=== PATIENT | female | born 1985 | race Caucasian/White ===

== ENCOUNTER 2017-12-31 16:28 | Emergency (ER) | payer MEDICAID ==
--- NOTE | 2017-12-31 16:51 | EDPHY ---
H & P Time Seen by Provider: 12/31/17 16:50 HPI/ROS: Chief complaint. Headache, body aches HPI. 32-year-old female presents emergency department with 1 week history of gradually increasing weakness. Last week she had lower abdominal pain of this is resolved. Today she felt like she could pass out because of weakness. She is somewhat sore in her chest. However no cough or significant shortness of breath. No fever but hot and cold flashes. Some congestion without sore throat. Nausea without vomiting or diarrhea. Denies urinary symptoms. No rash. No recent travel or known infectious exposure. ROS Constitutional. Weakness Eyes. no problems with vision ENT. Congestion Cardiovascular. Sore in chest Respiratory. Weak lungs Abdominal. Nausea . no problems urinating MS. no calf pain/swelling, no neck/back pain, no joint pain Skin. no rash Lymph. no swollen glands Neuro. Headache Past Medical/Surgical History: Healthy Social History: , daily smoker, no alcohol Smoking Status: Current some day smoker Physical Exam: General Appearance: Alert well-developed female mild distress vital signs are stable Eyes: Pupils equal and round no pallor or injection. ENT, tympanic membranes are normal. Pharynx slightly injected without exudate. Respiratory: There are no retractions, lungs are clear to auscultation. Cardiovascular: Regular rate and rhythm. Gastrointestinal: Abdomen is soft and nontender, no masses, bowel sounds normal. Neurological: Awake and alert, sensory and motor exams grossly normal. Skin: Warm and dry, no rashes. Musculoskeletal: Neck is supple nontender. Extremities symmetrical, full range of motion. Psychiatric: Patient is oriented X 3, there is no agitation. Constitutional: Initial Vital Signs Temperature (C) 37.0 C 12/31/17 16:44 Heart Rate 85 12/31/17 16:44 Respiratory Rate 18 12/31/17 16:44 Blood Pressure 112/75 12/31/17 16:44 O2 Sat (%) 96 12/31/17 16:44 O2 Delivery Mode Room Air Allergies/Adverse Reactions: No Known Allergies Allergy (Unverified 12/31/17 16:43) Home Medications: Medication Instructions Recorded NK [No Known Home Meds] 12/31/17 Medical Decision Making - Diagnostics Imaging Results: Imaging Impressions Chest X-Ray 12/31/17 17:09 Impression: Normal. Procedures: IV normal saline and patient is given 1 L of saline ED Course/Re-evaluation: Re-evaluation at 6:15 p.m.. Patient is stable. She and I discussed imaging and lab results. We discussed treatment plan including criteria for return importance of follow-up further evaluation. She expresses understanding and agreement Patient looks well. She does not appear toxic or septic Differential Diagnosis: I think this likely viral syndrome. I considered influenza, pneumonia, urinary tract infection. While she has an elevated white blood cell count there is no obvious source of bacterial infection. - Data Points Laboratory Results: Laboratory Results 12/31/17 17:20 12/31/17 17:20 12/31/17 12/31/17 12/31/17 17:35 17:20 17:20 WBC RBC Hgb Hct MCV MCH MCHC RDW Plt Count MPV Neut % (Auto) Lymph % (Auto) [place] % (Auto) Eos % (Auto) Baso % (Auto) Nucleat RBC Rel Count Absolute Neuts (auto) Absolute Lymphs (auto) Absolute Monos (auto) Absolute Eos (auto) Absolute Basos (auto) Absolute Nucleated RBC Immature Gran % Immature Gran # Sodium Potassium Chloride Carbon Dioxide Anion Gap BUN Creatinine Estimated GFR Glucose Calcium Beta HCG, Qual NEGATIVE Urine Color YELLOW Urine Appearance HAZY Urine pH 7.0 (5.0-7.5) Ur Specific [place] 1.015 (1.002-1.030) Urine Protein NEGATIVE (NEGATIVE) Urine Ketones NEGATIVE (NEGATIVE) Urine Blood NEGATIVE (NEGATIVE) Urine Nitrate NEGATIVE (NEGATIVE) Urine Bilirubin NEGATIVE (NEGATIVE) Urine Urobilinogen 0.2 EU EU (0.2-1.0) Ur Leukocyte Esterase NEGATIVE (NEGATIVE) Urine RBC NONE SEEN /hpf /hpf (0-3) Urine WBC NONE SEEN /hpf /hpf (0-3) Ur Epithelial Cells 2+ /lpf H /lpf (NONE-1+) Urine Bacteria TRACE /hpf H /hpf (NONE SEEN) Urine Mucus 1+ /lpf /lpf (NONE-1+) Urine Glucose NEGATIVE (NEGATIVE) Influenza A,B Rapid NEGATIVE FOR FLU (NEGATIVE) 12/31/17 12/31/17 17:20 17:20 WBC 15.16 10^3/uL H 10^3/uL (3.80-9.50) RBC 4.67 10^6/uL 10^6/uL (4.18-5.33) Hgb 13.1 g/dL g/dL (12.6-16.3) Hct 39.9 % % (38.0-47.0) MCV 85.4 fL fL (81.5-99.8) MCH 28.1 pg pg (27.9-34.1) MCHC 32.8 g/dL g/dL (32.4-36.7) RDW 14.5 % % (11.5-15.2) Plt Count 382 10^3/uL 10^3/uL (150-400) MPV 10.0 fL fL (8.7-11.7) Neut % (Auto) 77.7 % H % (39.3-74.2) Lymph % (Auto) 15.0 % % (15.0-45.0) [place] % (Auto) 5.0 % % (4.5-13.0) Eos % (Auto) 1.3 % % (0.6-7.6) Baso % (Auto) 0.7 % % (0.3-1.7) Nucleat RBC Rel Count 0.0 % % (0.0-0.2) Absolute Neuts (auto) 11.76 10^3/uL H 10^3/uL (1.70-6.50) Absolute Lymphs (auto) 2.28 10^3/uL 10^3/uL (1.00-3.00) Absolute Monos (auto) 0.76 10^3/uL 10^3/uL (0.30-0.80) Absolute Eos (auto) 0.20 10^3/uL 10^3/uL (0.03-0.40) Absolute Basos (auto) 0.11 10^3/uL H 10^3/uL (0.02-0.10) Absolute Nucleated RBC 0.00 10^3/uL 10^3/uL (0-0.01) Immature Gran % 0.3 % % (0.0-1.1) Immature Gran # 0.05 10^3/uL 10^3/uL (0.00-0.10) Sodium 142 mEq/L mEq/L (135-145) Potassium 3.8 mEq/L mEq/L (3.5-5.2) Chloride 105 mEq/L mEq/L (97-110) Carbon Dioxide 25 mEq/l mEq/l (22-31) Anion Gap 12 mEq/L mEq/L (8-16) BUN 7 mg/dL mg/dL (7-23) Creatinine 0.6 mg/dL mg/dL (0.6-1.0) Estimated GFR > 60 Glucose 109 mg/dL H mg/dL (70-100) Calcium 9.0 mg/dL mg/dL (8.5-10.4) Beta HCG, Qual Urine Color Urine Appearance Urine pH Ur Specific [place] Urine Protein Urine Ketones Urine Blood Urine Nitrate Urine Bilirubin Urine Urobilinogen Ur Leukocyte Esterase Urine RBC Urine WBC Ur Epithelial Cells Urine Bacteria Urine Mucus Urine Glucose Influenza A,B Rapid Medications Given: Discontinued Medications Sodium Chloride (Ns) 1,000 mls @ 0 mls/hr IV EDNOW ONE; Wide Open PRN Reason: Protocol Stop: 12/31/17 17:10 Last Admin: 12/31/17 17:18 Dose: 1,000 mls Departure - Departure Disposition: Home, Routine, Self-Care Clinical Impression: Viral syndrome Condition: Good Instructions: Viral Syndrome (ED) Additional Instructions: Easy activity. Drink plenty of fluids and stay hydrated. Tylenol 1000 mg every 4-6 hours, ibuprofen 600 mg every 6 hr as needed for fever and achiness. Return for worsening symptoms. Recheck in 2 days if not improved Referrals: NONE *PRIMARY CARE P,. [Primary Care Provider] - As per Instructions [facility] [Outside] - 2-3 days, if not improved Stand Alone Forms: School Excuse
[2017-12-31] MEDS ORDERED: NS 1,000 ML IV ONE (17:09)
[2017-12-31 17:24] LABS: PLATELET COUNT 382 10^3/uL (150-400)
[2017-12-31 18:41] VITALS: BP 100/59; PULSE 77; RESP 17; TEMP 98.8; O2SAT 99
== END 2017-12-31 18:39 | disposition home or self-care (01) ==
LOC: CED 16:28
DX: B34.9 Viral infection, unspecified (principal); E86.9 Volume depletion, unspecified; F17.200 Nicotine dependence, unspecified, uncomplicated
CPT/HCPCS: 71045-PO; 80048-PO; 81003-PO; 81015-PO; 84703-PO; 85025-PO; 87400-PO

== ENCOUNTER 2018-01-09 14:44 | Emergency (ER) | payer MEDICAID ==
[2018-01-09 14:54] VITALS: RESP 16
--- NOTE | 2018-01-09 15:34 | EDPHY ---
H & P Stated Complaint: PT. states lightheaded,fatigue, dizziness and nausea x1 week Time Seen by Provider: 01/09/18 15:02 HPI/ROS: This patient presents with ongoing symptoms of fatigue ache. She was seen here on December 31, 9 days prior to this visit by Dr. Black with complaints of fatigue, chills without fevers, nausea and had leukocytosis [place] [id number] [place] that time. She had an normal chest x-ray and Dr. Black felt she likely had a viral syndrome causing her symptoms. She has been hydrating with plenty fluids at home and is also seen documentation writer few times now but still has not felt any improvement. She returned today due to the ongoing symptoms. In addition to the above symptoms she reports feeling she has a"brain fog". She also describes mild dyspnea on exertion. ROS: Constitutional: Chills and also intolerant of cold temperatures but no fevers. Positive fatigue. HEENT: She denies any URI symptoms or other complaints Neuro: No headache. No focal numbness tingling or weakness. No bashir confusion. Psychiatric: She denies depression or anxiety. Pulmonary: No coughing. No dyspnea at baseline. Cardiovascular: She feels she has some dyspnea on exertion compared to baseline. She also reports slight discomfort in her chest with exertion. No leg pain or swelling. GI: Normal bowel movements. She does have nausea but no vomiting. She reports a good appetite. : Last menstrual. Normal timing 2 3 weeks ago normal flow. No urinary symptoms. No vaginal discharge. Integumentary: No skin rash. Endocrine: No complaints Complete review of symptoms otherwise negative Source: Patient Exam Limitations: No limitations - Personal History LMP (Females 10-55): 15-21 Days Ago Tetanus Vaccine Date: 2011 - Medical/Surgical History PMH: Otherwise healthy Hx Asthma: No Hx Chronic Respiratory Disease: No Hx Diabetes: No Hx Cardiac Disease: No Hx Renal Disease: No Hx Cirrhosis: No Hx Alcoholism: No Hx HIV/AIDS: No Hx Splenectomy or Spleen Trauma: No Other PMH: Med hx-none. 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 - Physical Exam Exam: Vital signs are normal General Appearance: Pleasant young woman Alert, no distress. Eyes: Pupils equal and round no pallor or injection. ENT, Mouth: Mucous membranes moist. Respiratory: There are no retractions, lungs are clear to auscultation. Cardiovascular: Regular rate and rhythm. No murmur gallop or rub. No peripheral edema. Gastrointestinal: Normoactive, soft, positive mild suprapubic and right lower quadrant tenderness with no guarding or rebound. Neurological: GCS 15. No focal deficits. Skin: Warm and dry, no rashes. Musculoskeletal: Neck is supple nontender. Extremities are symmetrical, full range of motion. Psychiatric: Mood and affect are normal. DIFFERENTIAL DIAGNOSIS: After history and physical exam differential diagnosis was considered for viral illness, thyroid disease, UTI, appendicitis, psychosomatic symptoms, pericarditis, other infectious etiology Constitutional: Initial Vital Signs Temperature (C) 36.9 C 01/09/18 14:49 Heart Rate 89 01/09/18 14:49 Respiratory Rate 16 01/09/18 14:49 Blood Pressure 118/77 01/09/18 14:49 O2 Sat (%) 96 01/09/18 14:49 O2 Delivery Mode Room Air Allergies/Adverse Reactions: No Known Allergies Allergy (Verified 01/09/18 14:47) Home Medications: Medication Instructions Recorded NK [No Known Home Meds] 12/31/17 Medical Decision Making - Diagnostics EKG Interpretation: 12 lead EKG performed at 1627 indication question pericarditis Sinus rhythm at 81 Intervals: Normal throughout [place]: Normal throughout ST segments: Normal throughout Overall assessment: Normal EKG Imaging Results: Imaging Impressions Abdomen Ultrasound 01/09/18 16:18 Impression: Sonographically normal appendix. Findings discussed with Emergency Department physician, Alber Enriquez M.D., on January 09, 2018 at 1805. Imaging: Discussed imaging studies w/ deposit refund clerk Radiologist ED Course/Re-evaluation: The patient declined an IV. She did accept phlebotomy. The review of her labs [place] [address] with a prominence of neutrophils and eosinophils. Her ESR is normal Her TSH is normal Urinalysis is normal in urine is negative. Metabolic panel from last week was normal. Chest x-ray from last week was also normal Abdominal limited ultrasound today revealed a normal appearing appendix per Dr. Logan-our radiologist. Discussion: The cause of this patient's fatigue is not clear. Her leukocytosis may be stress response versus viral illness. Given mild prominence of eosinophils, allergic etiology is also possible though she does not have any prominence of allergic symptoms-no seasonal allergies, no diarrhea or abdominal cramping that suggest food allergy. She does not have anemia, no evidence of significant thyroid disease. Similarly her EKG is normal tonight effectively ruling out significant pericarditis. I counseled regarding her studies. I Encouraged her to get plenty of rest, fluids and follow up with primary care physician. I Provided Dr. Preston, the outpatient physician on- call as a follow-up. Patient understands the need to return for any significant worsening despite the treatment plan. - Data Points Laboratory Results: Laboratory Results 01/09/18 15:45 01/09/18 01/09/18 01/09/18 15:45 15:45 15:05 WBC 16.01 10^3/uL H 10^3/uL (3.80-9.50) RBC 4.74 10^6/uL 10^6/uL (4.18-5.33) Hgb 13.4 g/dL g/dL (12.6-16.3) Hct 40.4 % % (38.0-47.0) MCV 85.2 fL fL (81.5-99.8) MCH 28.3 pg pg (27.9-34.1) MCHC 33.2 g/dL g/dL (32.4-36.7) RDW 14.4 % % (11.5-15.2) Plt Count 396 10^3/uL 10^3/uL (150-400) MPV 9.7 fL fL (8.7-11.7) Neut % (Auto) 74.2 % % (39.3-74.2) Lymph % (Auto) 17.3 % % (15.0-45.0) [place] % (Auto) 4.6 % % (4.5-13.0) Eos % (Auto) 2.7 % % (0.6-7.6) Baso % (Auto) 0.7 % % (0.3-1.7) Nucleat RBC Rel Count 0.0 % % (0.0-0.2) Absolute Neuts (auto) 11.86 10^3/uL H 10^3/uL (1.70-6.50) Absolute Lymphs (auto) 2.77 10^3/uL 10^3/uL (1.00-3.00) Absolute Monos (auto) 0.74 10^3/uL 10^3/uL (0.30-0.80) Absolute Eos (auto) 0.44 10^3/uL H 10^3/uL (0.03-0.40) Absolute Basos (auto) 0.12 10^3/uL H 10^3/uL (0.02-0.10) Absolute Nucleated RBC 0.00 10^3/uL 10^3/uL (0-0.01) Immature Gran % 0.5 % % (0.0-1.1) Immature Gran # 0.08 10^3/uL 10^3/uL (0.00-0.10) ESR 9 MM/HR MM/HR (0-20) TSH 1.810 uIU/mL uIU/mL (0.465-4.680) Urine Color Urine Appearance Urine pH Ur Specific [place] Urine Protein Urine Ketones Urine Blood Urine Nitrate Urine Bilirubin Urine Urobilinogen Ur Leukocyte Esterase Urine Glucose Urine Test NEGATIVE 01/09/18 15:05 WBC RBC Hgb Hct MCV MCH MCHC RDW Plt Count MPV Neut % (Auto) Lymph % (Auto) [place] % (Auto) Eos % (Auto) Baso % (Auto) Nucleat RBC Rel Count Absolute Neuts (auto) Absolute Lymphs (auto) Absolute Monos (auto) Absolute Eos (auto) Absolute Basos (auto) Absolute Nucleated RBC Immature Gran % Immature Gran # ESR TSH Urine Color YELLOW Urine Appearance HAZY Urine pH 7.0 (5.0-7.5) Ur Specific [place] <= 1.005 (1.002-1.030) Urine Protein NEGATIVE (NEGATIVE) Urine Ketones NEGATIVE (NEGATIVE) Urine Blood NEGATIVE (NEGATIVE) Urine Nitrate NEGATIVE (NEGATIVE) Urine Bilirubin NEGATIVE (NEGATIVE) Urine Urobilinogen 0.2 EU EU (0.2-1.0) Ur Leukocyte Esterase NEGATIVE (NEGATIVE) Urine Glucose NEGATIVE (NEGATIVE) Urine Test Departure - Departure Disposition: Home, Routine, Self-Care Clinical Impression: Fatigue Qualifiers: Fatigue type: unspecified Qualified Code(s): R53.83 - Other fatigue Condition: Good Instructions: Fatigue (ED) Additional Instructions: Diagnosis: Fatigue Your labs tonight showed an elevated white blood cell count. You do not have anemia. Your thyroid test is normal. Your ESR-a test to measure general inflammation is normal. Urinalysis is normal. Your test is negative. Your abdominal ultrasound reveals a normal appearing appendix. Last week, you had a normal appearing chest x-ray. The cause of your fatigue is unclear but you may have a viral illness causing your symptoms. You also had a mild prominence of eosinophils on your blood count to the suggests that you may also have an allergic component to your illness. Plan: Drink plenty of fluids Rest Follow up with primary care physician for any ongoing symptoms Return for any significant worsening despite treatment plan Referrals: NONE *PRIMARY CARE P,. [Primary Care Provider] - As per Instructions Teddy Preston MD [Medical Doctor] - As per Instructions
[2018-01-09 15:53] LABS: PLATELET COUNT 396 10^3/uL (150-400)
--- NOTE | 2018-01-09 16:30 | CPEKG ---
Heart Rate: 81 RR Interval: 741 P-R Interval: 196 QRSD Interval: 80 QT Interval: 364 QTC Interval: 423 P [place]: 0 QRS [place]: 49 T Wave [place]: 50 EKG Severity - NORMAL ECG - EKG Impression: SINUS RHYTHM Electronically Signed By: Alber Enriquez 09-Jan-2018 16:42:35
[2018-01-09 18:01] VITALS: BP 91/52; PULSE 85; TEMP 98.8; O2SAT 95
== END 2018-01-09 18:18 | disposition home or self-care (01) ==
LOC: CED 14:44
DX: R53.83 Other fatigue (principal); F17.200 Nicotine dependence, unspecified, uncomplicated
CPT/HCPCS: 76705-PO; 81003-PO; 81025-PO; 84443-PO; 85025-PO; 85652-PO

== ENCOUNTER 2018-04-24 22:40 | Emergency (ER) | payer MEDICAID ==
[2018-04-24 23:18] LABS: PLATELET COUNT 377 10^3/uL (150-400)
--- NOTE | 2018-04-24 23:30 | EDPHY ---
General Time Seen by Provider: 04/24/18 23:05 Narrative: CHIEF COMPLAINT: Abdominal pain, fatigue HISTORY OF PRESENT ILLNESS: Patient presents with complaints of abdominal and pelvic pain. It is described as lower in the abdomen. This been present for 6-8 weeks. It comes and goes. It has been increasing over the past 1 week. It is described as a pressure and a dull aching sensation. Nausea but no vomiting. No vaginal bleeding, discharge or pain at this time. She did have some vaginal discomfort, that she was evaluated for 1 month ago by gynecology here. They performed a pelvic exam and swabs to "rule out STDs," and she was diagnosed with bacterial vaginosis. They requested pelvic ultrasound that she has not yet obtained. She has no fever. No trauma or injury. No other associated complaints or modifying factors REVIEW OF SYSTEMS: Ten systems reviewed and are negative unless otherwise noted in the HPI PCP: None SPECIALISTS: [facility], line up worker PAST MEDICAL HISTORY: Noncontributory PAST SURGICAL HISTORY: Denies surgical history SOCIAL HISTORY: Nonsmoker. Lives independently FAMILY HISTORY: Noncontributory EXAMINATION General Appearance: Alert, no distress. Well-developed well-nourished Head: normocephalic, atraumatic Eyes: Pupils equal and round, no conjunctival pallor or injection ENT, Mouth: Mucous membranes moist. Uvula midline. Neck: Normal inspection, supple, non-tender Respiratory: Lungs are clear to auscultation. No wheezing rhonchi or crackles Cardiovascular: Regular rate and rhythm. No murmur Gastrointestinal: Abdomen is soft and nondistended. No tympany rigidity. No guarding. No palpable masses. Negative Rovsing. There is mild lower quadrant tenderness bilaterally. : Deferred. Pelvic exam recently performed by line up worker Back: non-tender, no bony abnormalities Neurological: A&O, nonfocal, normal gait Skin: Warm and dry, no rash Extremities: Nontender, no pedal edema Psychiatric: Mood and affect normal DIFFERENTIAL DIAGNOSES: Including but not limited to ovarian torsion, ovarian cysts, fibroids, enteritis , colitis, mesenteric adenitis, pelvic congestion syndrome MDM: 11:10 p.m. Lower abdominal pelvic pain of greater than 2 months duration, worsening over the past week. Her abdominal exam is benign a nonacute time. Vital signs are within normal limits, and she does not meet any SIRS criteria. She has no pelvic pain or vaginal complaints this time. She has not yet had a pelvic ultrasound that was recommended by her line up worker, thus I have ordered this 1st. Laboratory studies are pending. She is in no acute distress. 12:05 a.m. Notified by radiologist Dr. Morrison. Ultrasound reveals a left adnexal abnormality as documented. No evidence of torsion. Good flow to bilateral ovaries. I have re-evaluated the patient and she would like to proceed with CT scan abdomen pelvis. 12:50 a.m. Notified by radiologist Dr. Galindo. CT scan reveals a suspected teratoma on the left adnexa measuring 3.3 x 3.4 x 4.9 cm. 12:57 a.m. Patient re-evaluated. We discussed the CT scan findings. 1:08 a.m. Case discussed with on-call line up worker Dr. Boone. She has reviewed the patient's history, exam and ultrasound findings with me as well as the CT scan findings. She does feel the patient stable for discharge home with follow-up early next week. 1:15 a.m. I have re-evaluated the patient and presented this information regarding phone call the Gynecology. She is comfortable this plan as well. She would like to go home in follow-up palpation. She will provided short course of pain medication nausea medication. We discussed pelvic rest, close follow-up with primary care physician and gynecology early this week. We discussed ED precautions for any worsening pain, sudden change in pain, vaginal complaints, fever, flank pain or urinary complaints. She is comfortable this plan and discharged home stable condition. SUPERVISION: Patient was independently examined, but I discussed the case with my secondary supervising physician Dr. Palomo. - History Smoking Status: Current some day smoker - Objective Vital Signs: Initial Vital Signs Temperature (C) 98.1 F 04/24/18 22:43 Heart Rate 78 04/24/18 22:43 Respiratory Rate 16 04/24/18 22:43 Blood Pressure 114/67 04/24/18 22:43 O2 Sat (%) 94 04/24/18 22:43 O2 Delivery Mode Room Air Allergies/Adverse Reactions: No Known Allergies Allergy (Verified 01/09/18 14:47) Home Medications: Medication Instructions Recorded Ondansetron Odt [Zofran Odt 4 mg 4 mg PO Q6 PRN #12 tab 04/25/18 (*)] oxyCODONE HCL/ACETAMINOPHEN 1 each PO Q4-6PRN PRN #7 tablet 04/25/18 [Percocet 5-325 mg Tablet] Laboratory Results: Laboratory Results 04/24/18 23:04 04/24/18 23:04 Medications Given: Discontinued Medications Ondansetron HCl (Zofran Odt) 4 mg PO EDNOW ONE Stop: 04/25/18 01:14 Last Admin: 04/25/18 01:26 Dose: Not Given Ondansetron HCl (Zofran Odt 4 Mg Prepack#2) 1 btl TAKEHOME EDNOW ONE Stop: 04/25/18 01:22 Last Admin: 04/25/18 01:22 Dose: 1 btl Oxycodone/Acetaminophen (Percocet 5/325mg Prepack#4) 1 btl TAKEHOME EDNOW ONE Stop: 04/25/18 01:14 Last Admin: 04/25/18 01:24 Dose: 1 btl Departure - Departure Disposition: Home, Routine, Self-Care Clinical Impression: Teratoma of left ovary Abdominal pain Qualifiers: Abdominal location: lower abdomen, unspecified Qualified Code(s): R10.30 - Lower abdominal pain, unspecified Condition: Good Instructions: Oxycodone/Acetaminophen (By mouth), Ondansetron (By mouth), Acute Abdominal Pain (ED), Cyst (ED) Additional Instructions: 1. Ibuprofen 600 mg every 6-8 hours as needed 2. Percocet pain medication as prescribed as needed 3. Zofran nausea medication as prescribed as needed 4. Contact on-call line up worker as provided for outpatient care Thursday 5. ED precautions as discussed Referrals: NONE *PRIMARY CARE P,. [Primary Care Provider] - As per Instructions Vanessa Boone MD [Medical Doctor] - As per Instructions Stand Alone Forms: Work Excuse Prescriptions: Ondansetron Odt [Zofran Odt 4 mg (*)] 4 mg PO Q6 PRN #12 tab PRN Reason: Nausea/Vomiting, Use 1st oxyCODONE HCL/ACETAMINOPHEN [Percocet 5-325 mg Tablet] 1 each PO Q4-6PRN PRN #7 tablet PRN Reason: Pain, Breakthrough
[2018-04-25] MEDS ORDERED: IOPAMIDOL (ISOVUE-300) 100 ML BTL ONE (00:31)
[2018-04-25] MEDS ORDERED: OXYCODONE/APAP 5/325MG PREPACK#4 BTL TAKEHOME ONE (01:13)
[2018-04-25] MEDS ORDERED: ONDANSETRON DISINTEGRATING 4 MG TAB PO ONE (01:13)
[2018-04-25] MEDS ORDERED: ONDANSETRON 4MG PREPACK#2 BTL TAKEHOME ONE ×2 (01:20→01:21)
[2018-04-25 01:28] VITALS: BP 125/74
== END 2018-04-25 01:28 | disposition home or self-care (01) ==
DX: D27.9 Benign neoplasm of unspecified ovary (principal); F17.200 Nicotine dependence, unspecified, uncomplicated
CPT/HCPCS: Q9967

== ENCOUNTER 2018-04-30 12:24 | Emergency (ER) | payer MEDICAID ==
--- NOTE | 2018-04-30 13:13 | EDPHY ---
H & P Stated Complaint: HEADACHES FOR SEVERAL YEARS Time Seen by Provider: 04/30/18 12:45 HPI/ROS: CHIEF COMPLAINT: Teratoma HISTORY OF PRESENT ILLNESS: The patient is a 32-year-old female who comes to the emergency department complaining of diffuse weakness, chronic headaches and occasional disorientation and confusion. She states that she has had the symptoms for about 2 years. She was seen here a week ago complaining of abdominal discomfort and had an ultrasound and CT scan which diagnosed teratoma in her left adnexa. Dr. Boone from OBGYN was consulted who recommended the patient follow up as an outpatient. The patient has not seen Dr. Boone but did make an appointment with her OBGYN doctor Rebecca in [place]. She however cannot get an appointment for a month. She was talking to Dr. Fernandez's nurse line today about her chronic headache and weakness and they recommended she come to the ER. REVIEW OF SYSTEMS: Constitutional: See HPI denies: chills, fever, recent illness, recent injury EENTM: denies: blurred vision, double vision, nose congestion Respiratory: denies: cough, shortness of breath Cardiac: denies: chest pain, irregular heart rate, lightheadedness, palpitations Gastrointestinal/Abdominal: denies: abdominal pain, diarrhea, nausea, vomiting, blood streaked stools Genitourinary: denies: dysuria, frequency, hematuria, pain Musculoskeletal: denies: joint pain, muscle pain Skin: denies: lesions, rash, jaundice, bruising Neurological: Headache, diffuse weakness, denies: numbness, paresthesia, tingling, dizziness Hematologic/Lymphatic: denies: blood clots, easy bleeding, easy bruising Immunologic/allergic: denies: HIV/AIDS, transplant EXAM: GENERAL: Well-appearing, well-nourished and in no acute distress. HEAD: Atraumatic, normocephalic. EYES: Pupils equal round and reactive to light, extraocular movements intact, sclera anicteric, conjunctiva are normal. ENT: TMs normal, nares patent, oropharynx clear without exudates. Moist mucous membranes. NECK: Normal range of motion, supple without lymphadenopathy or JVD. LUNGS: Breath sounds clear to auscultation bilaterally and equal. No wheezes rales or rhonchi. HEART: Regular rate and rhythm without murmurs, rubs or gallops. ABDOMEN: Soft, nontender, normoactive bowel sounds. No guarding, no rebound. No masses appreciated. BACK: No CVA tenderness, no spinal tenderness, step-offs or deformities EXTREMITIES: Normal range of motion, no pitting or edema. No clubbing or cyanosis. NEUROLOGICAL: Cranial nerves II through XII grossly intact. Normal speech, normal gait. 5/5 strength, normal movement in all extremities, normal sensation PSYCH: Normal mood, normal affect. SKIN: Warm, dry, normal turgor, no visible rashes or lesions. Source: Patient Exam Limitations: No limitations - Personal History LMP (Females 10-55): 8-14 Days Ago Current Tetanus Diphtheria and Acellular Pertussis (TDAP): Yes Tetanus Vaccine Date: 2011 - Medical/Surgical History Hx Asthma: No Hx Chronic Respiratory Disease: No Hx Diabetes: No Hx Cardiac Disease: No Hx Renal Disease: No Hx Cirrhosis: No Hx Alcoholism: No Hx HIV/AIDS: No Hx Splenectomy or Spleen Trauma: No Other PMH: Med hx-none. Surg-none - Family History Significant Family History: No pertinent family hx - Social History Smoking Status: Never smoked Alcohol Use: None Constitutional: Initial Vital Signs Temperature (C) 37 C 04/30/18 12:25 Heart Rate 79 04/30/18 12:25 Respiratory Rate 16 04/30/18 12:25 Blood Pressure 107/67 04/30/18 12:25 O2 Sat (%) 97 04/30/18 12:25 O2 Delivery Mode Room Air Allergies/Adverse Reactions: No Known Allergies Allergy (Verified 04/30/18 12:30) Home Medications: Medication Instructions Recorded Percocet 04/30/18 Medical Decision Making ED Course/Re-evaluation: The patient is well appearing. She does not have any acute symptoms at this time. She has had chronic headaches, weakness and disorientation. She thinks that these are all due to the teratoma. We discussed options at length. In the end we agreed to attempt to move up her OBGYN appointment. I had case management consult. She does not require any lab work or testing at this time. water manager was able to make an appointment with her OBGYN today at 4 o'clock. The patient will go there. On the way out patient became distraught and was lying on the floor in the bathroom. She is seems to be frustrated that we would not take her to the operating room now to remove the teratoma. She began hyperventilating and stating that she could not feel her body. After much discussion with nursing staff in case management as well as her OBGYN staff we are able to help her get to her OBGYN appointment. Patient was acting in a very dramatic fashion but was not making any suicidal statements or hallucinating or exhibiting psychosis. She seemed hopeful that removing the teratoma may improve some of her other chronic symptoms as well. Differential Diagnosis: Partial list of the Differential diagnosis considered include but were not limited to; anxiety, depression teratoma, neuroendocrine syndrome and although unlikely based on the history and physical exam, I also considered intracranial hemorrhage, cerebral infection. I discussed these differential diagnoses and the plan with the patient as well as the usual and expected course. The patient understands that the diagnosis is provisional and that in medicine we are not always correct and that further workup is often warranted. Usual and customary warnings were given. All of the patient's questions were answered. The patient was instructed to return to the emergency department should the symptoms at all worsen or return, otherwise to followup with the physician as we discussed. Departure - Departure Disposition: Home, Routine, Self-Care Clinical Impression: Teratoma of left ovary Condition: Fair Instructions: Ovarian Cyst (ED) Referrals: NONE *PRIMARY CARE P,. [Primary Care Provider] - As per Instructions Vanessa Boone MD [Medical Doctor] - As per Instructions
[2018-04-30 13:23] VITALS: BP 105/70
--- NOTE | 2018-04-30 15:41 | ASMTCMCOM ---
CM Note CM Note Notes: Pt chart reviewed after Dr. Lomax requested assistance for outpatient [employer] followup. This SW spoke with Saba from [facility] [employer] on a number of occasions. Saba indicated that the pt expressed concern about "encepalopathy" and wanted her teratoma removed. The pt became angry after being told that that her surgery would not occur via the emergency department and her demeanor changed. Follow up calls with Saba reflected that the pt called the doctor's office several times and stated that she could not feel her body and she was having an anxiety attack. Saba expressed concern for the pt's mental health and suggested "psychiatric evaluation." This SW requested phone communication between the FACT[employer] SUPER[employer]ENT and Dr. Lomax. It was determined that the pt would be discharged and she was scheduled for a 4pm appointment later in the day at the [facility] [employer]. Saba emphasized that she was concerned for the pt's mental health and she was provided with [facility] crisis walk-in center address and phone number. She stated that the pt would be assessed at er appointment and [facility] would be contacted as needed. Date Signed: 04/30/2018 03:41 PM Electronically Signed By:Leslie Schulz LCSW
== END 2018-04-30 13:57 | disposition home or self-care (01) ==
DX: D39.12 Neoplasm of uncertain behavior of left ovary (principal)